=== PATIENT | male | born 1950 | race Caucasian/White ===

== ENCOUNTER 2022-12-08 08:11 | Day surgery (SDC) | payer MEDICARE ==
[2022-12-08] MEDS ORDERED: Midazolam 1 MG/ML 2 ML SDV IV ONE ×2 (08:12)
[2022-12-08] MEDS ORDERED: fentaNYL 100 MCG/2 ML SDV IV ONE (08:12)
[2022-12-08] MEDS ORDERED: Lactated Ringers 1,000 ML IV PRN (08:30)
[2022-12-08] MEDS ORDERED: Sodium Chloride 0.9% 10 ML Syringe FLUSH PRN (08:30)
[2022-12-08] MEDS ORDERED: acetaZOLAMIDE 500 MG Cap.ER PO ONE (10:30)
[2022-12-08 14:21] VITALS: PULSE 60
[2022-12-08 14:22] VITALS: BP 101/68
== END 2022-12-08 11:00 | disposition home or self-care (01) ==
LOC: FB.SDS 08:11
PROVIDERS: ATTEND Ophthalmology
DX: H26.9 Unspecified cataract (principal); I10 Essential (primary) hypertension; F17.210 Nicotine dependence, cigarettes, uncomplicated; Z79.899 Other long term (current) drug therapy
CPT/HCPCS: 00142; A9270-GY; J2250; J3010; J3490; V2632

== ENCOUNTER 2022-12-22 08:19 | Day surgery (SDC) | payer MEDICARE ==
[2022-12-22] MEDS ORDERED: Sodium Chloride 0.9% 10 ML Syringe IV ONE (08:20)
[2022-12-22] MEDS ORDERED: Midazolam 1 MG/ML 2 ML SDV IV ONE (08:20)
[2022-12-22] MEDS ORDERED: fentaNYL 100 MCG/2 ML SDV IV ONE (08:20)
[2022-12-22] MEDS ORDERED: Sodium Chloride 0.9% 10 ML Syringe FLUSH PRN (08:30)
[2022-12-22] MEDS ORDERED: Lactated Ringers 1,000 ML IV PRN (08:30)
[2022-12-22] MEDS ORDERED: acetaZOLAMIDE 500 MG Cap.ER PO ONE (10:30)
[2022-12-22 14:54] VITALS: BP 128/70; PULSE 63
== END 2022-12-22 10:56 | disposition home or self-care (01) ==
LOC: FB.SDS 08:19
PROVIDERS: ATTEND Ophthalmology
DX: H26.9 Unspecified cataract (principal); I10 Essential (primary) hypertension; Z79.899 Other long term (current) drug therapy
CPT/HCPCS: 00142; A9270-GY; J2250; J3010; J3490; V2632